=== PATIENT | male | born 1995 | race Caucasian/White ===

== ENCOUNTER 2016-11-05 16:26 | Emergency (ER) | payer OTHER ==
[~2016-11-05] VITALS: Ht 187.3 cm; Wt 97.7 kg
[2016-11-05 16:28] VITALS: BP 132/86; PULSE 80; RESP 18; O2SAT 100
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
[2016-11-05] MEDS ORDERED: TdaP Vaccine 0.5 mL Inj IM ONE (17:15)
[2016-11-05 19:33] VITALS: BP 129/84; PULSE 78; RESP 18; O2SAT 100
== END 2016-11-05 19:33 | disposition home or self-care (01) ==
LOC: EDBD 16:26 → SED 16:26 → EDUNIT# 16:26 → SED 19:33
DX: S81.812A Laceration without foreign body, left lower leg, initial encounter (principal); V13.4XXA Pedal cycle driver injured in collision with car, pick-up truck or van in traffic accident, initial encounter; Y93.89 Activity, other specified; Y92.410 Unspecified street and highway as the place of occurrence of the external cause; Y99.8 Other external cause status; F17.200 Nicotine dependence, unspecified, uncomplicated; Z23 Encounter for immunization